=== PATIENT | female | born 1995 | race Two or more races ===

== ENCOUNTER 2024-09-28 10:28 | Emergency (ER) | payer OTHER, MEDICAID, SELFPAY ==
[2024-09-28 10:30] VITALS: BMI 58.2
[2024-09-28 10:37] VITALS: BP 178/94; PULSE 110; RESP 22; TEMP 37.3; O2SAT 95
--- NOTE | 2024-09-28 10:40 | XR_ITS ---
Examination: PA lateral chest 2 views TECHNIQUE: Upright PA lateral chest 2 views Standing time: September 28, 2024 1055 hours INDICATIONS: Coughing fever today FINDINGS: Mild elevation right hemidiaphragm. Normal heart size No lumbar pneumonia IMPRESSION: No pneumonia identified
--- NOTE | 2024-09-28 10:42 | EDNOTE_ITS ---
<Statement entered by Alma Vargas MD - 09/28/24 17:57> As co-signing physician, I was present and available for consult prn. I concur with the plan and care as documented by the midlevel provider. ED Asthma RME/HPI General Chief Complaint: Asthma Stated Complaint: SOB & WHEEZING X4 DAYS Time Seen by Provider: 09/28/24 10:31 Source: patient Arrival date/time: 09/28/24 10:28 29-year-old female with a history of asthma presents to the emergency room with a chief complaint of shortness of breath x 4 days Mode of arrival: ambulatory Limitations: no limitations Related Data Previous Rx's ?Medication ?Instructions ?Recorded naproxen 500 mg tablet (Naprosyn) 500 mg PO BID PRN pa in #30 tabs 05/26/21 benzonatate 100 mg capsule 100 mg PO BID PRN cough #14 caps 09/28/24 Allergies Allergy/AdvReac Type Severity Reaction Status Date / Time No Known Allergies Allergy Verified 06/21/21 15:33 Review of Systems Review of Systems Systems Reviewed: All systems reviewed, normal except as documented Constitutional Constitutional: Reports system reviewed and no additional complaints, except as documented, Denies fatigue, Denies fever(s), Denies headache(s) and Denies weakness Eyes Eyes: Reports system reviewed and no additional complaints, except as documented, Denies blurry vision and Denies change in vision ENT Ears, Nose, Mouth, and Throat: Reports system reviewed and no additional complaints, except as documented, Denies otalgia, Denies headache(s), Denies nasal congestion, Denies throat swelling and Denies vertigo Cardiovascular Cardiovascular: Reports system reviewed and no additional complaints, except as documented, Denies chest pain, Reports dyspnea and Reports dyspnea on exertion Respiratory Respiratory: Reports system reviewed and no additional complaints, except as documented, Reports change in phlegm color, Reports chest congestion, Reports cough, Reports dyspnea, Reports dyspnea on exertion, Reports excessive phlegm production, Reports pain on inspiration and Reports wheezing Gastrointestinal Gastrointestinal: Reports system reviewed and no additional complaints, except as documented, Denies abdominal pain, Denies cramping, Denies nausea and Denies vomiting Genitourinary Genitourinary: Reports system reviewed and no additional complaints, except as documented Musculoskeletal Musculoskeletal: Reports system reviewed and no additional complaints, except as documented and Denies back pain Integumentary/Breasts Skin/Breast: Reports system reviewed and no additional complaints, except as documented and Denies wounds Neurologic Neurologic: Reports system reviewed and no additional complaints, except as documented, Denies confusion, Denies headache(s), Denies lack of coordination, Denies vertigo and Denies weakness Psychiatric Psychiatric: Reports system reviewed and no additional complaints, except as documented, Denies anxiety, Denies confusion, Denies depression, Denies paranoia, Denies suicidal ideation and Denies tactile hallucinations Endocrine Endocrine: Reports system reviewed and no additional complaints, except as documented and Denies fatigue Hematologic/Lymphatic Hematologic/Lymphatic: Reports system reviewed and no additional complaints, except as documented and Denies lymphadenopathy Allergic/Immunologic Allergic/Immunologic: Reports system reviewed and no additional complaints, except as documented, Denies throat swelling, Denies urticaria and Reports wheezing ED Exam General Limitations: Present no limitations General appearance: Present alert and in no apparent distress Head Head exam: Present atraumatic Eye Eye exam: Present normal appearance, PERRL and EOMI ENT ENT exam: Present normal exam, normal oropharynx and mucous membranes moist Neck Neck exam: Present normal inspection, full ROM and trachea midline Chest Chest inspection: Present normal inspection and symmetric chest wall rise Respiratory Respiratory exam: Present normal lung sounds bilaterally, respiratory distress and wheezes; Absent stridor, accessory muscle use or prolonged expiratory phase Expanded Respiratory Exam Location: Left: wheezes, Upper: wheezes and Lower: wheezes Cardiovascular Cardiovascular exam: Present regular rate, normal rhythm and normal heart sounds Abdominal Exam Abdominal exam: Present soft and normal bowel sounds Extremities Exam Extremities exam: Present normal inspection and full ROM Back Exam Back exam: Present normal inspection and full ROM Neurological Exam Neurological exam: Present alert, oriented X3 and CN II-XII intact Psychiatric Psychiatric exam: Present normal affect and normal mood Skin Skin exam: Present warm, dry, intact and normal color Course Quality Measures none Orders Category Date Time Status Bedside COVID-19 Antigen Test NOW Care 09/28/24 10:40 Active Bedside Influenza A&B Antigen Test NOW Care 09/28/24 10:40 Active XR chest 2V Stat Exams 09/28/24 10:40 Ordered Albuterol/Ipratr Rt Erlinda [Duoneb Rt Erlinda] Med 09/28/24 10:40 Once 6 ml INH X1 ONE Dexamethasone Inj [Decadron Inj] Med 09/28/24 10:40 Once 10 mg PO X1 ONE Vital Signs Vital signs: O2 saturation 95% within normal limits Asthma MDM Narrative MDM Narrative:: 29-year-old female with a history of asthma presents to the emergency room with a chief complaint of shortness of breath x 4 days Patient is hemodynamically stable and in no apparent distress. The patient is not tachypneic not tachycardic afebrile and her O2 saturation is 95%. Lung sounds have left-sided upper and lower wheezing. The patient appears short of breath. A DuoNeb breathing treatment and steroids were given with significant improvement to the patient's symptoms during her 1 hour reevaluation. Chest x-ray was negative for any pneumonic infiltrates COVID-19 and influenza were both negative. During reevaluation the patient is no longer wheezing and states she feels better for discharge. Patient was discharged and educated to follow-up with primary care provider in the next 24 to 48 hours and return to the emergency room for any evidence of worsening signs or symptoms Patient data External records reviewed:: [facility] previous records Clinical information provided by:: patient Social determinants that could affect healthcare access:: none Patient has the following chronic illnesses:: Asthma How is presenting disease/condition affected by chronic disease/condition?: exacerbated by Evaluation data The following diagnostics were reviewed and interpreted by me:: lab results and radiology exam(s) Lab and/or radiology exams considered but not ordered:: Labs and radiology exams considered and ordered Interpretation Summary: Chest [id number]: Mild elevation right hemidiaphragm. Normal heart size No lumbar pneumonia IMPRESSION: No pneumonia identified Medications / Prescriptions Medications or Prescriptions considered but not ordered:: Medication given Medication administrations:: Medication Administration History Albuterol/Ipratropium (Albuterol/Ipratropium (Duoneb) Rt Erlinda 3 Ml Nebu) 6 ml INH X1 ONE Stop: 09/28/24 10:41 Dexamethasone Sodium Phosphate (Dexamethasone Sod Phos Inj 10 Mg/Ml Vial) 10 mg PO X1 ONE Stop: 09/28/24 10:41 Consultations Consultation(s) initiated? (list below): No Diagnosis Differential diagnosis asthma: Acute exacerbation, Acute asthmatic bronchitis, Pneumonia and Pneumothorax Most likely diagnosis given after review of the tests above:: Asthma exacerbation Admission Indicated Admission indicated?: not indicated Admission Request Was there a request for admission?: No Disposition Plan Disposition Plan: Discharge Discharge Attestation Discharge Attestation: The patient and all family members were given an opportunity to ask questions and understood the discharge instructions. Discharge instructions specifically effects, indications for sooner follow up or return to the emergency department, and the expected course of current diagnosis. Patient condition: Stable Discharge Plan Plan Patient Disposition: HOME (Self Care) Disposition Comment: Stable Prescriptions/Referrals Prescriptions/Med Rec: New benzonatate 100 mg capsule 100 mg PO BID PRN (Reason: cough) Qty: 14 0RF No Action naproxen [Naprosyn] 500 mg tablet 500 mg PO BID PRN (Reason: pain) Qty: 30 0RF Referrals: No Primary/Family,Physician [Primary Care Provider] - In 1 week Problem List Clinical Impression: Asthma exacerbation Patient/Caregiver Discharge Instructions Education Materials: ED Asthma, Acute (Adult) Additional Instructions: Please follow-up with your primary care provider in the next 24 to 40 hours. Chest x-ray was completed and was negative for any pneumonic infiltrates For any evidence of worsening signs or symptoms return to the emergency room immediately Print Language: Kyrgyz Stand Alone Forms: Divina Award Info., Patient Portal Info Letter PA/ELECTRO WINNING OPERATOR Supervising Physician PA/MICHELLE Supervising Physician: Dr. VARGAS
[2024-09-28] MEDS: ALBUTEROL/IPRATROPIUM (Duoneb) RT SOL 3 ML NEBU 6 ML INH (11:00)
[2024-09-28 11:02] VITALS: PULSE 105; RESP 20; O2SAT 99
[2024-09-28] MEDS: DEXAMETHASONE SOD PHOS INJ 10 MG/ML VIAL PO (13:18)
== END 2024-09-28 14:27 | disposition home or self-care (01) ==
PROVIDERS: Emergency Provider Emergency Medicine
DX: J45.901 Unspecified asthma with (acute) exacerbation (principal)
CPT/HCPCS: 71046; 87400; 87811; 94640; 99283; A9270; J1100

== ENCOUNTER 2025-05-25 20:58 | Emergency (ER) | payer OTHER, MEDICAID, SELFPAY ==
[2025-05-25 20:59] VITALS: BMI 61.7
[2025-05-25 21:09] VITALS: BP 139/93; PULSE 98; RESP 20; TEMP 36.9; O2SAT 95
--- NOTE | 2025-05-25 21:22 | EKG_ITS ---
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
--- NOTE | 2025-05-25 21:22 | XR_ITS ---
Examination: Abdomen sonogram, Limited Date and time of exam: May 26, 2025, 0006 hours INDICATIONS: Epigastric pain beginning 2 days ago Technique: Real-time lyle scale transabdominal sonographic images of the upper abdomen obtained. Findings: Normal gallbladder. Normal common bile duct 0.3 cm Pancreas obscured by bowel gas Liver 15.2 cm no focal liver lesions Normal hepatopetal portal venous flow Patent IVC IMPRESSION: Normal gallbladder Normal common bile duct 0.3 cm
--- NOTE | 2025-05-25 21:23 | XR_ITS ---
EXAMINATION: Upright PA chest single view TECHNIQUE: Upright PA chest single view Date and time: May 25, 2025, 9:31 p.m. INDICATIONS: Epigastric pain chest pain 3 days FINDINGS: Normal heart size lungs are clear. Mild elevation right hemidiaphragm Intact osseous structures IMPRESSION: No active disease
--- NOTE | 2025-05-25 21:23 | PD.EDRME ---
Rapid Medical Screening Exam E Arrival date/time: 05/25/25 20:58 This is a case of 30-year-old female who came in in the emergency room due to bilateral upper abdominal pain epigastric pain and midsternal chest pain for 3 days the patient states that the chest pain is pleuritic in character denies any injury or trauma denies any nausea vomiting constipation diarrhea Chief Complaint: Chest Pain Time Seen by Provider: 05/25/25 21:02 Vital signs: Vital Signs Temperature 98.5 F 05/25/25 21:09 Pulse Rate 98 05/25/25 21:09 Respiratory Rate 20 05/25/25 21:09 Blood Pressure 139/93 H 05/25/25 21:09 Pulse Oximetry (%) 95 05/25/25 21:09 Oxygen Delivery Method Room Air 05/25/25 21:09 Exam: Mild tenderness both upper abdomen and epigastric area no guarding no rebound no rigidity normal rate regular rhythm no murmur clear breath sounds Clinical Impression: Chest pain abdominal pain
[2025-05-25 21:43] LABS: Basophils # (Auto) 0.0 Thou/mm3 (0.0-0.2); Basophils % (Auto) 0 % (0-2.5); Eosinophils # (Auto) 0.1 Thou/mm3 (0.0-0.5); Eosinophils % (Auto) 1 % (0-10); Hematocrit 36.1 % (36.0-46.0); Hemoglobin 11.2 g/dL (12.0-16.0); Immature Granulocytes Auto 0.05 Thou/mm3 (0.00-0.00); Lymphocytes # (Auto) 2.5 Thou/mm3 (1.0-4.8); Lymphocytes % (Auto) 19 % (10-50); Mean Corpuscular HGB Conc 31.0 g/dl (31.0-37.0); Mean Corpuscular Hemoglobin 24.0 pg (25.0-35.0); Mean Corpuscular Volume 78 fL (80-100); Monocytes # (Auto) 0.7 Thou/mm3 (0.0-0.8); Monocytes % (Auto) 5 % (0-12); Neutrophils # (Auto) 9.5 Thou/mm3 (1.8-7.7); Neutrophils % (Auto) 74 % (37-80); Nucleated Red Blood Cell # 0.00 Thou/mm3 (0.00-0.00); Nucleated Red Blood Cell % 0 /100 WBC (0); Platelet Count 294 Thou/mm3 (140-440); RDW Standard Deviation 41.7 fL (36.4-46.3); Red Blood Count 4.66 Miln/mm3 (4.00-5.20); White Blood Count 12.8 Thou/mm3 (3.6-11.0)
--- NOTE | 2025-05-25 21:57 | EDNOTE_ITS ---
ED Chest Pain RME/HPI General Chief Complaint: Chest Pain Stated Complaint: PLURITIC CHEST PAIN Time Seen by Provider: 05/25/25 21:02 Source: patient Arrival date/time: 05/25/25 20:58 Limitations: no limitations RME / HPI RME / HPI narrative: 05/25/25 20:58 This is a case of 30-year-old female who came in in the emergency room due to bilateral upper abdominal pain epigastric pain and midsternal chest pain for 3 days the patient states that the chest pain is pleuritic in character denies any injury or trauma denies any nausea vomiting constipation diarrhea Dr. Valdovinos's Main ED Evaluation: 30yo female presents to the ED for complaints of chest and abdominal pain x yesterday. Patient states she's been feeling full and bloated since yesterday despite not eating a lot. Patient was unable to eat today due to being bloated, reporting her pain is sharp and worsens when she takes a deep breath. Patient has been unable to burp or pass gas despite taking Milk of Magnesia, Gas X, and Miralax. Patient reports that she has a history of asthma. She takes her daily asthma medicine and that did not change her symptoms. She also did a DuoNeb at home but she feels like this is different from her regular asthma exacerbation type symptoms. Denies any fever, chills, N/V, or any other associated symptoms. Last bowel movement was yesterday morning. Denies being on control. Denies tobacco use. NKA. Related Data Previous Rx's ?Medication ?Instructions ?Recorded naproxen 500 mg tablet (Naprosyn) 500 mg PO BID PRN pa in #30 tabs 05/26/21 benzonatate 100 mg capsule 100 mg PO BID PRN cough #14 caps 09/28/24 pantoprazole 20 mg tablet,delayed 20 mg PO QDAY #30 ta bs 05/26/25 release (Protonix) Allergies Allergy/AdvReac Type Severity Reaction Status Date / Time No Known Allergies Allergy Verified 05/25/25 21:02 Review of Systems Review of Systems Systems Reviewed: All systems reviewed, normal except as documented Past Medical History Past Medical History CARDIAC: Negative Cardiac Disorders or Congestive Heart Failure RESPIRATORY: Negative Chronic Obstructive Pulmonary Disease (COPD) or Asthma GASTROINTESTINAL: Positive Gastroesophageal Reflux Disease GENITOURINARY: Negative Renal Disease REPRODUCTIVE: Positive Previous Pregnancies ENDOCRINE: Negative Diabetes Mellitus Type 1 or Diabetes Mellitus Type 2 HEMATOLOGIC: Negative Sickle Cell Disease Social History SMOKING STATUS: Never smoker ED Exam General Limitations: Present no limitations General appearance: Present alert, in no apparent distress and obese Head Head exam: Present atraumatic Eye Eye exam: Present normal appearance, PERRL and EOMI ENT ENT exam: Present normal exam, normal oropharynx and mucous membranes dry Neck Neck exam: Present normal inspection, full ROM and trachea midline Chest Chest inspection: Present normal inspection and symmetric chest wall rise Respiratory Respiratory exam: Present normal lung sounds bilaterally Cardiovascular Cardiovascular exam: Present regular rate, normal rhythm and normal heart sounds Abdominal Exam Abdominal exam: Present soft and normal bowel sounds Extremities Exam Extremities exam: Present normal inspection and full ROM Back Exam Back exam: Present normal inspection and full ROM Neurological Exam Neurological exam: Present alert, oriented X3 and CN II-XII intact Psychiatric Psychiatric exam: Present normal affect and normal mood Skin Skin exam: Present warm, dry, intact and normal color Course Quality Measures none Orders Category Date Time Status CT Screening NOW Care 05/25/25 23:53 Active EKG (ED ONLY) *Do not use* NOW Care 05/25/25 21:22 Completed EKG (ED ONLY) *Do not use* NOW Care 05/26/25 04:46 Completed IV [Insert IV] NOW Care 05/26/25 00:[address] angio chest abdomen pelvis Stat Exams 05/25/25 23:53 Taken EKG (ED Only) Stat Exams 05/25/25 21:22 Draft EKG (ED Only) Stat Exams 05/26/25 04:46 Draft US gall bladder Stat Exams 05/25/25 21:22 Taken XR chest 1V Stat Exams 05/25/25 21:23 Completed CBC Stat Lab 05/25/25 21:34 Completed Comprehensive Metabolic Panel Stat Lab 05/25/25 21:34 Completed D-Dimer Stat Lab 05/26/25 05:08 Received HCG,Qualitative Serum Stat Lab 05/25/25 21:34 Completed Lipase Stat Lab 05/25/25 21:34 Completed PT [Prothrombin Time with INR] Stat Lab 05/26/25 05:08 Completed PTT [Partial Thromboplastin Time] Stat Lab 05/26/25 05:08 Completed Troponin I Stat Lab 05/25/25 21:34 Completed Troponin I Stat Lab 05/26/25 05:08 Completed Urinalysis Stat Lab 05/26/25 00:43 Completed Albuterol/Ipratr Rt Erlinda [Duoneb Rt Erlinda] Med 05/26/25 04:42 Discontinued 3 ml INH X1 ONE Budesonide Rt [Pulmicort Rt Erlinda] Med 05/26/25 05:04 Discontinued 0.5 mg INH X1 ONE Dexamethasone Inj [Decadron Inj] Med 05/26/25 05:08 Discontinued 10 mg IVP X1 ONE Ketorolac Inj [Toradol Inj] Med 05/26/25 06:15 Discontinued 15 mg IVP X1 ONE Pantoprazole [Protonix] Med 05/26/25 07:05 Discontinued 40 mg PO X1 ONE Vital Signs Vital signs: Vital Signs Temperature 98.5 F 05/25/25 21:09 Pulse Rate 98 05/25/25 21:09 Respiratory Rate 20 05/25/25 21:09 Blood Pressure 139/93 H 05/25/25 21:09 Pulse Oximetry (%) 95 05/25/25 21:09 Oxygen Delivery Method Room Air 05/25/25 21:09 Chest Pain MDM Narrative MDM Narrative:: Scribe Attestation: 05/25/25 Bre Hsieh am scribing for and in the presence of Dr. Valdovinos. 30-year-old female with no significant past medical history other than a history of asthma without intubations in the past presenting to the emergency department with atypical chest pain, with associated bloating, in the emergency department blood pressure is stable at 140 systolic, pulse of 98 and otherwise afebrile. She is 95% on room air. White count is normal at 12 with normal LFTs and troponin x 1 is negative. EKG shows none ST elevation and no ischemia and is reassuring. Patient does not want any medications to include Motrin, Toradol, or morphine. Discussed with Dr. Traore who knows this patient well and at this time he does not feel comfortable with the patient going home without a diagnosis. I we spoke to the patient at approximately 4:45 AM. She states the pain is worse with even sitting up especially up in the chair. Will give DuoNeb and reassess. Of note the CT angio does not specifically state there is no pulmonary embolism. Will discuss with radiology for them to interpret this part of the CT scan, send D-dimer, and repeat troponin #2. 0700: Repeat EKG shows normal sinus rhythm. No ST elevations or depressions. CT angio chest was relook that since it was not mentioned on the report and the radiologist reports no pulmonary embolism. Patient data External records reviewed:: [facility] previous records (Per chart review, patient was seen here on 09/28/24 for asthma exacerbation.) Clinical information provided by:: patient Social determinants that could affect healthcare access:: none Patient has the following chronic illnesses:: asthma How is presenting disease/condition affected by chronic disease/condition?: uneffected by Evaluation data The following diagnostics were reviewed and interpreted by me:: lab results, radiology exam(s) and EKG tracing(s) Lab and/or radiology exams considered but not ordered:: none Interpretation Summary: WBC 12.8, CMP normal, Troponin normal, Lipase normal, HCG negative. EKG done at 2124, sinus rhythm, rate of 88, normal intervals, normal axis, no acute ST or T-changes, according to my interpretation. Repeat EKG done at 0453, sinus tachycardia, rate of 100, no ST elevations or depressions, QTc: 450, no STEMI, according to my interpretation. [facility] Report Signed Patient: FRANK BAGLEY Record#: [id number] Birthdate: 1995 Age/Sex: 30 / F Location: [facility] Attending Dr: Ordering Physician: Steve John Date of Service: 05/25/25 Procedure(s): XR chest 1V Accession Number(s): [id number] cc: Abdirashid Tadeo MD; Steve John~ EXAMINATION: Upright PA chest single view TECHNIQUE: Upright PA chest single view Date and time: May 25, 2025, 9:31 p.m. INDICATIONS: Epigastric pain chest pain 3 days FINDINGS: Normal heart size lungs are clear. Mild elevation right hemidiaphragm Intact osseous structures IMPRESSION: No active disease Dictated By: Abdirashid Tadeo MD Signed By: <Electronically signed by Abdirashid Tadeo MD in OV> 05/25/25 2216 [address] Preliminary Report Draft Patient: FRANK BAGLEY. Record#: [id number] Birthdate: 1995 Age/Sex: 30 / F Location: [facility] Attending Dr: Ordering Physician: Date of Service: Procedure(s): Accession Number(s): cc: ~ Gallbladder ultrasound with Limited Doppler. May 26, 2025 at 0006 hours Clinical history: Abdominal/epigastric pain x2 days. No prior study is available for comparison. Findings: The evaluation is limited due to overlying bowel gas. The visualized liver is normal in echogenicity. There is no intrahepatic biliary duct dilatation. The main portal vein is patent, measuring 1.1 cm and demonstrates hepatopetal flow. No gallbladder wall thickening. No gallbladder calculus or pericholecystic fluid is identified. Sonographic Biggs sign is negative. Please correlate with any pain medication. The common duct is normal in caliber at 3 mm. The pancreas is not visualized, due to obscured by bowel gas. The abdominal aorta and inferior vena cava are unremarkable to the extent visualized. Impression: Limited evaluation as described. No obvious abnormality. Report Electronically Signed By: Odilon Koch 05/26/2025 1:31:40 AM [EST] CT angiogram chest abdomen and pelvis with intravenous contrast. Axial images with sagittal and coronal reconstructions. Clinical history: chest pain/epigastric pain. Findings: Cardiac size is normal. No pericardial effusion pleural effusion or pneumothorax. A 4 mm nodule at the right lung apex, image 33. Fatty liver infiltration. Liver is enlarged, 21 cm long. Spleen is enlarged, 12.6 cm long. Pancreas, adrenal glands, gallbladder and kidneys are unremarkable. Appendix is mildly thickened, 8 mm in diameter, image 304. No definite adjacent fat stranding. Bowel caliber is normal. A 4.8 x 3.8 cm right ovarian cyst. The urinary bladder is normal. No free intraperitoneal air or fluid. The abdominal wall is unremarkable. Aorta, celiac, superior inferior mesenteric, bilateral renal and iliac arteries are unremarkable. No acute osseous process. Impression: 1. No acute thoracic process. 2. Fatty liver and hepatosplenomegaly. 3. Mildly thickened appendix without definite inflammation. Recommend clinical correlation to exclude appendicitis. Consider repeat scan with delayed oral contrast to evaluate patency if clinically indicated. 4. A 4.8 cm right renal cyst. Recommend ultrasound follow-up. This report has been electronically signed by: Rashad Stafford MD. Medications / Prescriptions Medications or Prescriptions considered but not ordered:: none Medication administrations:: Medication Administration History Discontinued Medications Albuterol/Ipratropium (Albuterol/Ipratropium (Duoneb) Rt Erlinda 3 Ml Nebu) 3 ml INH X1 ONE Stop: 05/26/25 04:43 Last Admin: 05/26/25 04:57 Dose: 3 ml Documented By: CG Budesonide (Budesonide Rt 0.5 Mg/2 Ml Nebu) 0.5 mg INH X1 ONE Stop: 05/26/25 05:05 Last Admin: 05/26/25 05:11 Dose: 0.5 mg Documented By: CG Dexamethasone Sodium Phosphate (Dexamethasone Sod Phos Inj 10 Mg/Ml Vial) 10 mg IVP X1 ONE Stop: 05/26/25 05:09 Last Admin: 05/26/25 05:26 Dose: 10 mg Documented By: CVL Ketorolac Tromethamine (Ketorolac Inj 30 Mg/Ml Vial) 15 mg IVP X1 ONE Stop: 05/26/25 06:16 Last Admin: 05/26/25 06:15 Dose: 15 mg Documented By: CVL Pantoprazole Sodium (Pantoprazole 40 Mg Tablet) 40 mg PO X1 ONE Stop: 05/26/25 07:06 none Consultations Consultation(s) initiated? (list below): Yes Diagnosis Chest Pain Differential Diagnosis: other (gallstones, gastritis, SBO, PE, pancreatitis) Most likely diagnosis given after review of the tests above:: see clinical impression below Admission Indicated Admission indicated?: not indicated Admission Request Was there a request for admission?: No Disposition Plan Disposition Plan: Discharge Discharge Attestation Discharge Attestation: The patient and all family members were given an opportunity to ask questions and understood the discharge instructions. Discharge instructions specifically effects, indications for sooner follow up or return to the emergency department, and the expected course of current diagnosis. Patient condition: Stable Discharge Plan Plan Patient Disposition: HOME (Self Care) Patient condition on transfer: Stable Prescriptions/Referrals Prescriptions/Med Rec: New pantoprazole [Protonix] 20 mg tablet,delayed release (DR/EC) 20 mg PO QDAY Qty: 30 0RF No Action naproxen [Naprosyn] 500 mg tablet 500 mg PO BID PRN (Reason: pain) Qty: 30 0RF benzonatate 100 mg capsule 100 mg PO BID PRN (Reason: cough) Qty: 14 0RF Referrals: Jeri Jones PA-C [Primary Care Provider] - In 1 week Problem List Clinical Impression: Atypical chest pain, Incidental pulmonary nodule Patient/Caregiver Discharge Instructions Education Materials: ED Chest Pain, Uncertain Cause Additional Instructions: Return to the emergency department for worsening symptoms, or any other concerns. I did speak to Dr. Traore and he did recommend perhaps observation in the hospital but of course you have decided you would like to go home. Your CT angio does not show that you have a clot in the lung. You do have a 4 mm nodule which have to be follow-up with your primary care physician as an outpatient as needed. Please continue rest medications. Dr. Traore would also like you to be on Protonix which I have prescribed for you. Print Language: Samoan Stand Alone Forms: [facility] Award Info., Patient Portal Info Letter
[2025-05-25 22:10] LABS: Alanine Aminotransferase 20 U/L (10-49); Albumin, Serum 4.3 gm/dL (3.5-5.0); Albumin/Globulin Ratio 1.5 (1.2-2.2); Alkaline Phosphatase 102 U/L (46-116); Anion Gap 8 (7-16); Aspartate Amino Transferase 15 U/L (0-34); BUN/Creatinine Ratio 13 Ratio (12-20); Bilirubin,Total 0.4 mg/dL (0.3-1.2); Blood Urea Nitrogen 9 mg/dL (9-23); Calcium 9.2 mg/dL (8.3-10.6); Calcium (Corrected) 9.2 mg/dL (8.5-10.1); Carbon Dioxide 26.6 mMol/L (20.0-31.0); Chloride 106 mMol/L (98-107); Creatinine (Component) 0.7 mg/dL (0.6-1.3); Estimated Creatinine Clearance 180.4 mL/min (>60); Globulin 2.9 gm/dL (2.3-3.5); Glucose 108 mg/dL (74-106); Lipase 24 U/L (12-53); Osmolality,Calculated 280 (275-295); Potassium 3.7 mMol/L (3.4-5.1); Sodium 141 mMol/L (136-145); Total Protein 7.2 gm/dL (5.7-8.2); Troponin I < 0.002 ng/mL (0.0-0.045); eGFR > 60 See Note
[2025-05-25 23:03] LABS: HCG,Qualitative Serum Negative
--- NOTE | 2025-05-25 23:53 | XR_ITS ---
Examination: CTA chest, with intravenous contrast. CTA abdomen, with intravenous contrast. CTA pelvis, with intravenous contrast. 2-D sagittal and coronal reconstructions. 3-D reconstructions. Date and time of exam: May 26, 2025, 0151 hours INDICATIONS: Chest pain epigastric pain abdominal pain onset today, clinical diagnosis pulmonary emboli CTDI vol (mgy) 23.5 DLP (MGycm) 1721 Technique: Multiple CTA images, 2.0 mm slice thickness, obtained chest, abdomen, pelvis, with the high-resolution 64 slice scanner. 100 cc Isovue-370 is administered intravenously. Sagittal and coronal 2-D reconstructions are obtained. 3-D reconstructions, angiographic images are obtained. 3-D postprocessing, including vascular maximum intensity projections. Low dose protocols were performed. One or more of the following dose reduction techniques were used; automated exposure control, adjustment of the mA and/or KV according to patient size, use of iterative reconstruction technique. Findings: No thoracic aortic aneurysm dilatation Pulmonary artery opacification is not optimal, no pulmonary artery emboli noted No paratracheal tracheobronchial or bronchopulmonary adenopathy 3 mm pulmonary nodule right upper lobe No pneumonia or pulmonary edema Hepatosplenomegaly, fatty infiltration throughout the liver No gallstones No renal or ureteral calculi, no hydronephrosis No periappendiceal inflammatory change No bowel obstruction or diverticulitis Right ovarian cyst 4.5 cm No uterine mass Bladder intact IMPRESSION: Pulmonary artery opacification is poor, no gross pulmonary artery emboli noted 3 mm pulmonary nodule right upper lobe No pneumonia or pulmonary edema Hepatosplenomegaly, liver 21 cm, spleen 13 cm Negative for gallstones No renal or ureteral calculi No CT findings diagnostic for appendicitis 4.5 cm right ovarian cyst
[2025-05-26 01:05] LABS: Collection Type, Urine Clean Catch
[2025-05-26 01:13] VITALS: BP 150/97; PULSE 73; RESP 20; TEMP 36.4; O2SAT 98
[2025-05-26 01:23] LABS: Bilirubin,Urine Negative (Negative); Blood,Urine Trace (Negative); Clarity,Urine Clear (Clear/Hazy); Color,Urine Lt-Yellow (Lt Yel-Yel); Glucose, Urine Negative (Negative); Ketones,Urine Negative (Negative); Leukocyte Esterase,Urine Negative (Negative); Nitrite,Urine Negative (Negative); PH,Urine 6.0 (5.0-7.0); Protein,Urine Negative (Neg - Trace); RBC,Urine 4 /hpf (0-3); Specific Gravity,Urine 1.029 (1.001-1.035); Squamous Epithelial Cell,Urine 15 /hpf (0-5); Urobilinogen,Urine Negative mg/dL (0.0-1.0); WBC,Urine 1 /hpf (0-5)
--- NOTE | 2025-05-26 01:32 | PRELIM_ITS ---
Gallbladder ultrasound with Limited Doppler. May 26, 2025 at 0006 hours Clinical history: Abdominal/epigastric pain x2 days. No prior study is available for comparison. Findings: The evaluation is limited due to overlying bowel gas. The visualized liver is normal in echogenicity. There is no intrahepatic biliary duct dilatation. The main portal vein is patent, measuring 1.1 cm and demonstrates hepatopetal flow. No gallbladder wall thickening. No gallbladder calculus or pericholecystic fluid is identified. Sonographic Biggs sign is negative. Please correlate with any pain medication. The common duct is normal in caliber at 3 mm. The pancreas is not visualized, due to obscured by bowel gas. The abdominal aorta and inferior vena cava are unremarkable to the extent visualized. Impression: Limited evaluation as described. No obvious abnormality. Report Electronically Signed By: Odilon Koch 05/26/2025 1:31:40 AM [EST]
--- NOTE | 2025-05-26 04:46 | EKG_ITS ---
[facility] Test Date: 2025-05-26 Pat Name: FRANK BAGLEY Department: Room: - Gender: Female [employer]: : 1995 Requested By: Nicolette Hedrick Order Number: [id number] Reading MD: Nicolette Hedrick Measurements Intervals [place] Rate: 125 P: RI: QRS: 29 QRSD: 105 T: 90 QT: 376 QTc: 544 Interpretive Statements SUPRAVENTRICULAR TACHYCARDIA NONSPECIFIC T-WAVE ABNORMALITY ABNORMAL RHYTHM ECG Compared to ECG 05/25/2025 21:24:37 T-wave abnormality now present Sinus rhythm no longer present /store/S0/[id number].pdf
[2025-05-26] MEDS: ALBUTEROL/IPRATROPIUM (Duoneb) RT SOL 3 ML NEBU INH (04:57)
[2025-05-26 04:58] VITALS: PULSE 70; RESP 18; O2SAT 99
[2025-05-26 05:11] VITALS: PULSE 80; RESP 19; O2SAT 99
[2025-05-26] MEDS: BUDESONIDE RT 0.5 MG/2 ML NEBU INH (05:11)
[2025-05-26] MEDS: DEXAMETHASONE SOD PHOS INJ 10 MG/ML VIAL IVP (05:26)
[2025-05-26] MEDS: KETOROLAC INJ 30 MG/ML VIAL 15 MG IVP (06:15)
[2025-05-26 06:20] LABS: Troponin I < 0.020 ng/mL (0.0-0.045)
[2025-05-26 06:25] VITALS: BP 114/73; PULSE 80; RESP 18; TEMP 36.8; O2SAT 97
[2025-05-26 06:40] LABS: INR 1.0 (0.9-1.3); Partial Thromboplastin Time 31.5 Seconds (22.0-36.0); Prothrombin Time 10.4 Seconds (9.0-12.2)
[2025-05-26] MEDS: PANTOPRAZOLE 40 MG TABLET PO (07:31)
[2025-05-26 07:50] VITALS: BP 132/90; PULSE 80; RESP 18; TEMP 36.7; O2SAT 95
[2025-05-26 07:55] LABS: D-Dimer < 250 ng/mL (<600)
== END 2025-05-26 07:55 | disposition home or self-care (01) ==
PROVIDERS: Nurse Practitioner Family; Emergency Provider Emergency Medicine; PCP Physician Assistant Medical
DX: R07.89 Other chest pain (principal); R91.1 Solitary pulmonary nodule; R10.13 Epigastric pain; R16.2 Hepatomegaly with splenomegaly, not elsewhere classified; N83.201 Unspecified ovarian cyst, right side; I47.10 Supraventricular tachycardia, unspecified
CPT/HCPCS: 36415; 71045; 71275; 74174; 76705; 80053; 81001; 83690; 84484; 84703; 85025; 85379; 85610; 85730; 93005; 94640; 96374; 96375; 99284; A4649; A9270; J1100; J1885; Q9967

== ENCOUNTER 2025-06-14 07:30 | Day surgery (SDC) | payer OTHER, MEDICAID, SELFPAY ==
[2025-06-11 09:09] VITALS: BMI 63.5
[2025-06-14 08:17] VITALS: BP 124/86; PULSE 107; RESP 20; TEMP 36.8; O2SAT 95; BMI 62.4
--- NOTE | 2025-06-14 08:20 | SUR.PREOP ---
Patient expressed gratitude for prayer before their procedure.
[2025-06-14 08:55] VITALS: PULSE 80
[2025-06-14] MEDS: ALBUTEROL RT 2.5 MG/3 ML NEBU INH (08:55)
[2025-06-14 08:58] LABS: HCG Qualitative,Urine Negative
[2025-06-14 09:00] VITALS: PULSE 82; RESP 20; O2SAT 98
[2025-06-14] MEDS: RINGERS LACTATED 1000 ML 1,000 ML 20 ML IV (09:20)
[2025-06-14] MEDS: BENZOCAINE 20% (Hurricaine) SPRAY 1 DOSE TOP (09:29)
[2025-06-14] MEDS: LIDOCAINE JELLY 2% (Urojet) 10 ML TUBE TOP (09:56)
[2025-06-14 10:00] VITALS: BP 121/88; PULSE 81; RESP 19; TEMP 36.2; O2SAT 100
[2025-06-14 10:10] VITALS: BP 137/100; PULSE 90; RESP 19; O2SAT 100
[2025-06-14 10:20] VITALS: BP 137/94; PULSE 85; RESP 19; O2SAT 100
== END 2025-06-14 10:30 | disposition home or self-care (01) ==
PROVIDERS: PCP Physician Assistant Medical; Referring Provider Specialist; Visit Provider Specialist
PROC: 0DJD8ZZ Inspection of Lower Intestinal Tract, Via Natural or Artificial Opening Endoscopic (ICD-10-PCS; CPT 45378; principal; 2025-06-14 08:30)
PROC: (CPT 43239; 2025-06-14 08:30)
DX: Z12.11 Encounter for screening for malignant neoplasm of colon (principal); K52.9 Noninfective gastroenteritis and colitis, unspecified; K63.89 Other specified diseases of intestine; K62.89 Other specified diseases of anus and rectum; J45.909 Unspecified asthma, uncomplicated; K29.50 Unspecified chronic gastritis without bleeding; K20.90 Esophagitis, unspecified without bleeding; K31.7 Polyp of stomach and duodenum
CPT/HCPCS: 45380; 45398; 43239; 81025; 84703; A4649; J7120; A9270